=== PATIENT | male | born 1975 | race Caucasian/White ===

== ENCOUNTER → 2018-01-21 | Outpatient (CLI) | payer OTHER ==
--- NOTE | 2018-02-15 09:58 | SLEEP ---
[address] [address] SLEEP STUDY REPORT Name: CHARISSENICCI Win Room: [facility]#: [id number] Admission: 01/21/18 Attend Phys: Josué Dee DO Discharge: Date of : 75 Report #: [id number] THIS REPORT FOR: //name// CC: Josué Dee This study has been reviewed in its entirety by a board certified sleep specialist REFERRING PHYSICIAN: Dr. Josué Dee. TYPE OF STUDY: Home sleep apnea test. This was a home sleep apnea test with a total recording time 472.5 minutes. During the study, the patient had 4 central apneas, 43 obstructive apneas and 106 hypopneas, with overall apnea-hypopnea index of 21.9 per hour. These episodes were mostly noted during the lateral sleep. Minimal supine and prone sleep was captured. The average O2 saturation during the study was 92%. The lowest O2 saturation recorded with events was 79% and significant snoring was captured during the study. IMPRESSION: The above home sleep apnea test demonstrate evidence of moderate obstructive sleep apnea with apnea-hypopnea index 21.9 per hour and oxygen desaturation to a christy of 79%. Please note the above apnea-hypopnea index could be an underestimate given the nature of the home sleep apnea test. RECOMMENDATIONS: Options for treating obstructive sleep apnea include repeat sleep study as an attended in-lab sleep study for the purpose of CPAP titration to determine the appropriate CPAP pressure that controls the patient's obstructive sleep apnea. Another option is if there is no contraindication for auto CPAP, can be considered on a pressure range of 5-20 cm of water with a close clinical followup and data download. <ELECTRONICALLY SIGNED> By: Aureliano Walker MD 02/15/18 [id number] Smith MD /nt
== END ==
LOC: M.SLEEPLAB 09:00
DX: G47.33 Obstructive sleep apnea (adult) (pediatric) (principal)